=== PATIENT | male | born 1965 | race Caucasian/White ===

== ENCOUNTER 2019-05-06 11:22 | Emergency (ER) | payer OTHER ==
[2019-05-06 12:55] LABS: URINE APPEARANCE CLOUDY; URINE BILIRUBIN NEGATIVE (NEGATIVE); URINE BLOOD LARGE (NEGATIVE); URINE COLOR YELLOW; URINE GLUCOSE (UA) NEGATIVE (NEGATIVE); URINE KETONE NEGATIVE (NEGATIVE); URINE LEUKOCYTE ESTERASE NEGATIVE (NEGATIVE); URINE NITRITE NEGATIVE (NEGATIVE); URINE PROTEIN NEGATIVE (NEGATIVE); URINE UROBILINOGEN 0.2 E.U./dL (0.20 - 1.00)
[2019-05-06] MEDS ORDERED: 0.9 % SODIUM CHLORIDE 1,000 ML BAG IV ONE (13:02)
[2019-05-06] MEDS ORDERED: ONDANSETRON HCL IV 4 MG/2 ML VIAL IV ONE (13:02)
[2019-05-06 13:07] LABS: URINE EPITHELIAL CELLS NONE SEEN (FEW); URINE RBC 36 - 50 (NONE SEEN); URINE WBC 0 - 2 (0-2/hpf)
[2019-05-06] MEDS ORDERED: HYDROMORPHONE HCL 2 MG/ML VIAL IVP ONE (13:09)
[2019-05-06 13:18] LABS: ABSOLUTE NEUTROPHIL COUNT 5.64; BASO % 0.3 % (0-6); EOS % 2.2 % (0-6); GRAN % 63.5 % (47-80); HEMATOCRIT 52.6 % (42.0-52.0); HEMOGLOBIN 16.8 gm/dl (14.0-18.0); MEAN CELL VOLUME 86.7 fl (81-97); MEAN CORPUSCULAR HGB CONC 31.9 g/dl (32-36); MEAN PLATELET VOLUME 10.7 fl (7.4-10.4); PLATELET COUNT 246 K/uL (130-400); RED BLOOD COUNT 6.07 M/uL (4.40-5.70); RED CELL DISTRIBUTION WIDTH 18.6 % (11.5-14.5); WHITE BLOOD COUNT W/O DIFF 8.9 K/uL (4.2-12.2)
[2019-05-06 13:19] LABS: MEAN CORPUSCULAR HEMOGLOBIN 27.6 pg (27-33)
[2019-05-06 13:31] LABS: BLOOD UREA NITROGEN 18 mg/dL (6-20); CREATININE 1.1 mg/dL (0.7-1.2); EST GLOMERULAR FILTRATION RATE > 60 mL/min
[2019-05-06 13:34] LABS: GLUCOSE,RANDOM 102 mg/dL (74-109)
--- NOTE | 2019-05-06 13:45 | Emergency Department Record ---
History of Present Illness - General Chief complaint: Male Urogenital Problem Stated complaint: KIDNEY STONE Time Seen by Provider: 05/06/19 12:40 Source: Patient Mode of Arrival: Ambulatory Limitations: No limitations - History of Present Illness Initial comments: pt has l flank pain that feels like previous kidney stones. he has had many and has had lithotripsy Onset/Timin -: Days(s) Location: Left flank Severity: Moderate Severity scale (1-10): 7 Quality: Sharp Consistency: Constant Improves with: None Worsens with: None Reports: Denies other symptoms - Related Data Home Medications Medication Instructions Recorded Confirmed Last Taken Testosterone Cypionate 200 mg IM ASDIR 05/06/19 05/06/19 Unknown [Depo-Testosterone] Allergies Allergy/AdvReac Type Severity Reaction Status Date / Time ketorolac [From Toradol] Allergy Severe ANAPHYLAXIS Verified 05/06/19 12:50 NSAIDS (Non-Steroidal Allergy Severe ANAPHYLAXIS Verified 05/06/19 12:50 Anti-Inflamma Penicillins Allergy Mild RASH Verified 05/06/19 12:50 Travel Screening - Travel/Exposure Within Last 30 Days Have you traveled within the last 30 days?: Yes Location Detail:: [place] - Travel Symptoms Symptom Screening: None Review of Systems Reviewed: No additional complaints except as noted below Constitutional: Reports: As per HPI. Denies: Chills, Fever, Malaise, Night sweats, Weakness, Weight change Eyes: Reports: As per HPI. Denies: Eye discharge, Eye pain, Photophobia, Vision change ENT: Reports: As per HPI. Denies: Congestion, Dental pain, Ear pain, Epistaxis, Hearing loss, Throat pain Respiratory: Reports: As per HPI. Denies: Cough, Dyspnea, Hemoptysis, Stridor, Wheezes Cardiovascular: Reports: As per HPI. Denies: Arrhythmia, Chest pain, Dyspnea on exertion, Edema, Murmurs, Orthopnea, Palpitations, Paroxysmal nocturnal dyspnea, Rheumatic Fever, Syncope Endocrine: Reports: As per HPI. Denies: Fatigue, Heat or cold intolerance, Polydipsia, Polyuria Gastrointestinal: Reports: As per HPI. Denies: Abdominal pain, Constipation, Diarrhea, Hematemesis, Hematochezia, Melena, Nausea, Vomiting Genitourinary: Reports: As per HPI. Denies: Dysuria, Frequency, Hematuria, I ncontinence, Retention, Testicular pain, Testicular mass, Urgency Musculoskeletal: Reports: As per HPI. Denies: Arthralgia, Back pain, Gout, Joint swelling, Myalgia, Neck pain Skin: Reports: As per HPI. Denies: Bruising, Change in color, Change in hair/nails, Lesions, Pruritus, Rash Neurological: Reports: As per HPI. Denies: Abnormal gait, Confusion, Headache, Numbness, Paresthesias, Seizure, Tingling, Tremors, Vertigo, Weakness Psychiatric: Reports: As per HPI. Denies: Anxiety, Auditory hallucinations, Depression, Homicidal thoughts, Suicidal thoughts, Visual hallucinations Hematological/Lymphatic: Reports: As per HPI. Denies: Anemia, Blood Clots, Easy bleeding, Easy bruising, Swollen glands Past Medical History - SOCIAL HISTORY Smoking Status: Never smoker Alcohol Use: None Drug Use: None - RESPIRATORY Hx Respiratory Disorders: No - CARDIOVASCULAR Hx Cardio Disorders: No - NEURO Hx Neuro Disorders: No - GI Hx GI Disorders: No - Hx Genitourinary Disorders: Yes Hx Kidney Stones: Yes - ENDOCRINE Hx Endocrine Disorders: No - MUSCULOSKELETAL Hx Musculoskeletal Disorders: Yes - PSYCH Hx Psych Problems: No - HEMATOLOGY/ONCOLOGY Hx Hematology/Oncology Disorders: No Family Medical History Any Significant Family History?: No Physical Exam - General General Appearance: Alert, Oriented x3, Cooperative, No acute distress - Head Head exam: Normal inspection - Eye Eye exam: Normal appearance, PERRL, EOMI Pupils: Normal accommodation - ENT ENT exam: Normal exam, Mucous membranes moist, Normal external ear exam, Normal orophraynx Ear exam: Normal external inspection. negative: External canal tenderness Nasal Exam: Normal inspection. negative: Discharge, Sinus tenderness Mouth exam: Normal external inspection, Tongue normal Teeth exam: Normal inspection. negative: Dental caries Throat exam: Normal inspection. negative: Tonsillar erythema, Tonsillar exudate - Neck Neck exam: Normal inspection, Full ROM. negative: Tenderness - Respiratory Respiratory exam: Normal lung sounds bilaterally. negative: Respiratory distress - Cardiovascular Cardiovascular Exam: Regular rate, Normal rhythm, Normal heart sounds - GI/Abdominal GI/Abdominal exam: Soft, Normal bowel sounds. negative: Tenderness - Rectal Rectal exam: Deferred - exam: Deferred - Extremities Extremities exam: Normal inspection, Full ROM, Normal capillary refill. negative: Tenderness - Back Back exam: Reports: Normal inspection, Full ROM. Denies: Muscle spasm, Rash noted, Tenderness - Neurological Neurological exam: Alert, CN II-XII intact, Normal gait, Oriented X3 - Psychiatric Psychiatric exam: Normal affect, Normal mood - Skin Skin exam: Dry, Intact, Normal color, Warm Course Vital Signs 05/06/19 11:43 Temperature 98.4 F Pulse Rate [ 75 Pulse Ox Probe] Respiratory 18 Rate Blood Pressure 137/91 [Left Arm] Pulse Ox 93 L Medical Decision Making - Lab Data Result diagrams: 05/06/19 12:40 05/06/19 12:40 Lab Results 05/06/19 05/06/19 05/06/19 Range/Units 12:40 12:40 Unknown WBC 8.9 (4.2-12.2) K/uL RBC 6.07 H (4.40-5.70) M/uL Hgb 16.8 (14.0-18.0) gm/dl Hct 52.6 H (42.0-52.0) % MCV 86.7 (81-97) fl MCH 27.6 (27-33) pg MCHC 31.9 L (32-36) g/dl RDW 18.6 H (11.5-14.5) % Plt Count 246 (130-400) K/uL MPV 10.7 H (7.4-10.4) fl Gran % 63.5 (47-80) % Lymphocytes % 24.0 (16-45) % Monocytes % 10.0 H (0-9) % Eosinophils % 2.2 (0-6) % Basophils % 0.3 (0-6) % Absolute Neutrophils 5.64 Sodium 139 (136-145) mmol/L Potassium 4.5 (3.4-4.5) mmol/L Chloride 104 (98-107) mmol/L Carbon Dioxide 24.0 (22-29) mmol/L Anion Gap 11.0 (7-16) BUN 18 (6-20) mg/dL Creatinine 1.1 (0.7-1.2) mg/dL Estimated GFR > 60 mL/min Random Glucose 102 (74-109) mg/dL Calcium 9.2 (8.6-10.0) mg/dL Urine Color Yellow Urine Appearance Cloudy Urine pH 7.0 (5.0-8.0) Ur Specific Forks 1.010 (1.002-1.030) Urine Protein Negative (NEGATIVE) Urine Glucose (UA) Negative (NEGATIVE) Urine Ketones Negative (NEGATIVE) Urine Blood Large H (NEGATIVE) Urine Nitrite Negative (NEGATIVE) Urine Bilirubin Negative (NEGATIVE) Urine Urobilinogen 0.2 (0.20 - 1.00) E.U./dL Ur Leukocyte Esterase Negative (NEGATIVE) Urine RBC 36 - 50 (NONE SEEN) Urine WBC 0 - 2 (0-2/hpf) Ur Epithelial Cells None seen (FEW) Disposition Disposition: Discharge Clinical Impression: Hematuria Qualifiers: Hematuria type: gross Qualified Code(s): R31.0 - Gross hematuria Disposition: Home, Self-Care Condition: (1) Good Instructions: Hematuria (ED), Flank Pain (ED) Additional Instructions: follow up with family doctor and urologist. return sooner if worse Forms: Patient Portal Access Quality - Quality Measures Quality Measures: N/A - Blood Pressure Screening Does Patient Have Any of the Following: No Blood Pressure Classification: Hypertensive Reading Systolic Measurement: 137 Diastolic Measurement: 91 Screening for High Blood Pressure: < First Hypertensive BP, F/U Documented > [G8950] First Hypertensive Follow-up Interventions: Follow-up with rescreen GT 1 day and LT 4 weeks.
--- NOTE | 2019-05-07 10:28 | CT SCAN REPORT ---
EXAM: CT OF THE ABDOMEN AND PELVIS WITHOUT CONTRAST HISTORY: LEFT FLANK PAIN SINCE LAST NIGHT. TECHNIQUE: Thin collimation helical CT examination of the abdomen and pelvis was performed without oral or intravenous contrast administration. Lack of oral and IV contrast utilization limits evaluation of the bowel and solid viscera respectively. Comparison: None. FINDINGS: There is mild dependent atelectasis in each lung base. Minimal linear scarring versus atelectasis also noted within the anteromedial lung bases. The visualized lung bases are otherwise clear and there is no pleural or pericardial effusion. The heart is not enlarged. The liver, spleen, pancreas, and adrenal glands are normal in appearance. The gallbladder is unremarkable and no biliary ductal dilatation is seen. The kidneys are normal in position. The left kidney measures 9.7 cm in length while the right kidney measures 13.7 cm in length. No renal mass is seen. There are three nonobstructing calculi within the lower pole of the left kidney. The largest of these measures approximately 5.5 mm in maximum diameter. No other nephrolithiasis is identified. No gross hydronephrosis. No ureteral calculus. No intraabdominal nor retroperitoneal lymphadenopathy. Minor atherosclerosis without aneurysmal dilatation of the abdominal aorta nor iliac arteries. There is calcification within the central portion of the prostate gland. The prostate gland is borderline to mildly enlarged. No pelvic mass, lymphadenopathy or free pelvic fluid. No intrinsic urinary bladder abnormality. No gross bowel dilatation or bowel wall thickening. There are, however, gas and stool distended small bowel loops in the left mid abdomen which approach the upper limits of normal in caliber without gross bowel wall thickening. No adjacent mesenteric fat stranding. No sharp zone of transition. No lytic or blastic bone lesion. There are post surgical changes within the lower lumbar spine including posterior fusion of C3 through S1. Multilevel degenerative changes. IMPRESSION: 1. THE LEFT KIDNEY APPEARS MILDLY ATROPHIC RELATIVE TO THE RIGHT. LEFT NEPHROLITHIASIS. NO OBSTRUCTIVE UROPATHY. 2. NO CONVINCING MECHANICAL BOWEL OBSTRUCTION. NORMAL APPENDIX. THERE ARE SEVERAL LOOPS OF JEJUNUM WHICH APPROACH THE UPPER LIMITS OF NORMAL IN CALIBER IN THE LEFT ABDOMEN WITHOUT SHARP ZONE OF TRANSITION. THIS IS NONSPECIFIC. 3. POST SURGICAL CHANGES WITHIN THE LOWER LUMBAR SPINE. JOB NUMBER: [id number] MTDD
== END 2019-05-06 14:42 | disposition home or self-care (01) ==
LOC: ER 11:22
DX: R31.0 Gross hematuria (principal); Z87.442 Personal history of urinary calculi
CPT/HCPCS: 99284 ×2; 96374; 96375; 96361; 85025; 80048; 81001; 74176; J2405; J1170; J7030